=== PATIENT | female | born 1945 | race Caucasian/White ===

== ENCOUNTER 2025-03-12 16:27 | Emergency (ER) | payer MEDICARE, BC, SELFPAY ==
[2025-03-12 16:30] VITALS: BP 189/115; PULSE 104; PULSE 82; RESP 18; TEMP 36.7; O2SAT 95
--- NOTE | 2025-03-12 16:43 | PD.EDADULT ---
ED General RME/HPI General Chief complaint: Abdominal Pain Stated complaint: ABDOMINAL PAIN Time Seen by Provider: 03/12/25 16:40 Arrival date/time: 03/12/25 16:27 CC: Abdominal pain, chronic, patient states she went lopes , when she was in her blood pressure taken when her nurse was not there. Patient is very anxious and hard of hearing. Related Data Home Medications ?Medication ?Instructions ?Recorded ?Confirmed verapamil 180 mg tablet,extended 180 mg PO QDAY 04/16/22 11/23/23 release buprenorphine 20 mcg/hour weekly 20 mcg topical QWEEK 04/13/23 05/06/23 transdermal patch metoclopramide HCl 5 mg tablet 5 mg PO BID 04/13/23 08/15/23 (Reglan) alprazolam 1 mg tablet 1 mg PO BID 05/06/23 08/15/23 oxycodone 20 mg tablet 20 mg PO Q6H 05/06/23 08/15/23 oxycodone 20 mg tablet 20 mg PO Q6HR PRN GIVE FOR 11/23/23 11/23/23 MOD-SEVERE PAIN Previous Rx's ?Medication ?Instructions ?Recorded ondansetron 4 mg disintegrating 4 mg PO Q6HR PRN Nausea Or 06/09/22 tablet Vomiting #0 tabs lidocaine 5 % topical patch 1 patch topical QDAY abdominal 05/07/23 pain #30 ea naloxone 4 mg/actuation nasal spray 4 mg intranasal Q2M PRN opioid 05/07/23 overdose 30 days #2 ea ziprasidone HCl 20 mg capsule 20 mg PO QPM PRN agitation #14 caps 08/15/23 (Geodon) duloxetine 30 mg capsule,delayed 30 mg PO QDAY #30 caps 08/18/23 release sprinkle Allergies Allergy/AdvReac Type Severity Reaction Status Date / Time iodine Allergy Severe Swelling Verified 08/14/23 12:41 Iodinated Contrast Media Allergy Swelling Verified 08/14/23 12:41 (Iodinated Contrast- Oral of and IV Dye) Lip/Tongue/Throat lorazepam AdvReac Severe MEMORY LOSS Verified 08/14/23 12:41 morphine AdvReac Severe HALLUCINATI Verified 08/14/23 12:41 ONS ondansetron AdvReac Intermediate SHAKING, Verified 08/14/23 12:41 I DONT LIKE THE FEELING UNKNOWN ANTIBIOTIC Allergy Unknown Uncoded 08/14/23 12:41 Review of Systems Review of Systems Narrative Review of Systems: GEN: No fever, no chills, no weight loss EYES: No discharge, no visual changes, no pain HEENT: No ear pain, no congestion, no sore throat PULM: No shortness of breath, no cough, no congestion CV: No chest pain, no dyspnea on exertion, no palpitations GI: No nausea, no vomiting, no diarrhea, + pain, no constipation : No frequency, no urgency, no dysuria MUSC/SKEL: No joint pain, no back pain SKIN: No rash PSYCH: No hallucinations, no depression HEME/LYMPH: No easy bleeding or bruising tendencies NEURO: No weakness, no headache Past Medical History Past Medical History NEUROLOGIC: Positive Transient Ischemic Attacks (TIA) and Alzheimer's Disease; Negative Neurological Disorders or Seizures CARDIAC: Positive Cardiac Disorders, Atrial Fibrillation, Edema and Hypertension; Negative Congestive Heart Failure RESPIRATORY: Negative Chronic Obstructive Pulmonary Disease (COPD) or Asthma GASTROINTESTINAL: Positive Gastrointestinal Disorders, Gall Bladder Disease, Crohn's Disease and Hemorrhoids; Negative Hepatitis or Colorectal Cancer GENITOURINARY: Positive Kidney Stones; Negative Genitourinary Disorders or Renal Disease REPRODUCTIVE: Positive Previous Pregnancies; Negative Breast Cancer, Genital Herpes, Gonorrhea or Syphilis MUSCULOSKELETAL: Positive Musculoskeletal Disorders, Arthritis and Fibromyalgia; Negative Bone Cancer ENT: Positive Glaucoma and Deafness ENDOCRINE: Negative Endocrine Disorders, Diabetes Mellitus Type 1 or Diabetes Mellitus Type 2 HEMATOLOGIC: Positive Blood Disorders and Anemia; Negative Sickle Cell Disease PSYCHO/SOCIAL: Positive Depression and Anxiety OTHER HISTORY: Positive Hospitalization, Falls, Blood Transfusions, Chicken Pox, Measles, Mumps, Rubella (Kinyarwanda Measles) and Pertussis; Negative Autoimmune Disease, Blood Transfusion Reaction, Anesthesia Reactions, Organ Transplant, MRSA, VRSA, Vancomycin-Resistant Enterococci, Human Immunodeficiency Virus (HIV), Clostridium Difficile, Cancer, Breast Cancer, Cervical Cancer, Colorectal Cancer, Lung Cancer or Ovarian Cancer Family History FAMILY HISTORY: Positive Family Psychiatric Problems, Family Cancer and Family Surgery; Negative Family Respiratory Disorders, Family Cardiac Disorders, Family Gastrointestinal Problems or Family Anesthesia Reaction Surgical History SURGICAL: Positive Abdominal Surgery and Bowel Surgery; Negative Cardiac Surgery, Endocrine Surgery, Thyroidectomy, Ear Surgery, Nephrectomy, Joint Replacement, Neurologic Surgery, Mastectomy, Lumpectomy, Hysterectomy, Tubal Ligation, Section or Organ Transplant Social History SMOKING STATUS: Current every day smoker SECOND HAND EXPOSURE: No SUBSTANCE USE: does not use ED Exam Narrative Physical exam: [General: Anxious but not in any acute distress Head normocephalic HEENT: Within acceptable limits Neck is supple nontender Chest equal chest rise nontender to palpation Respiratory: Clear to auscultation no wheezes crackles or rubs CV: Rate rhythm is regular no murmurs rubs or clicks Abdomen is distended soft nontender no masses positive bowel sounds all 4 quadrants Back: No CVA tenderness no spinous process tenderness from cervical spine thoracic and lumbar spine Skin: Intact no petechiae rash induration ulceration or crepitus Extremities: Moving all extremity against resistance cap refill less than 2 seconds neurosensory intact Neuro: Awake alert oriented x3 Glascow coma 15 no focal deficits] Course Quality Measures none Orders Category Date Time Status IV [Insert IV] NOW Care 03/12/25 16:20 Active In and Out Catheter X1 Care 03/12/25 17:40 Completed B-Type Natriuretic Peptide Stat Lab 03/12/25 16:50 Completed CBC Stat Lab 03/12/25 16:50 Completed CMP [Comprehensive Metabolic Panel] Stat Lab 03/12/25 16:50 Completed Drug Screen,Urine Stat Lab 03/12/25 17:50 Completed LDH (Lactate Dehydrogenase) Stat Lab 03/12/25 16:50 Completed Magnesium Stat Lab 03/12/25 16:50 Completed Partial Thromboplastin Time Stat Lab 03/12/25 16:50 Completed Prothrombin Time with INR Stat Lab 03/12/25 16:50 Completed Urinalysis Stat Lab 03/12/25 17:50 Completed Vital Signs Vital signs: Vital Signs Temperature 98.0 F 03/12/25 16:30 Pulse Rate 82 03/12/25 16:30 Respiratory Rate 18 03/12/25 16:30 Blood Pressure 189/115 H 03/12/25 16:30 Pulse Oximetry (%) 95 03/12/25 16:30 Oxygen Delivery Method Room Air 03/12/25 16:30 [facility] Patient data External records reviewed:: [facility] previous records and EMS form Clinical information provided by:: patient and EMS Social determinants that could affect healthcare access:: none Patient has the following chronic illnesses:: A-fib chronic abdominal pain fibromyalgia headache hypokalemia seizure disorder sciatica How is presenting disease/condition affected by chronic disease/condition?: uneffected by Evaluation data The following diagnostics were reviewed and interpreted by me:: lab results and radiology exam(s) Lab and/or radiology exams considered but not ordered:: CBC shows no leukocytosis hemoconcentrated with a hemoglobin 16.8 and a crit of 49.0. No thrombocytopenia. Coags within acceptable limits CMP shows glucose 122 no other electrolyte imbalances renal impairment transaminitis or T. bili elevation BNP is negative Troponin is negative Urine is negative for urinary tract infection UDS is positive for opiates and benzos. Interpretation Summary: There is no acute finding requires emergent or immediate intervention. Vital signs are stable patient will be discharged home. Medications Medications considered but not ordered:: None Medication administrations:: None Consultations Consultation(s) initiated? (list below): No Diagnosis Differential Diagnosis ED Complaint MDM: Electrolyte imbalances renal impairment drug-seeking behavior anxiety Most likely diagnosis given after review of the tests above:: Abdominal pain anxiety Admission Indicated Admission indicated?: not indicated Explain why admission is indicated or not indicated:: Stable for discharge Admission Request Was there a request for admission?: No Disposition Plan Disposition Plan: Discharge Discharge Attestation Discharge Attestation: The patient and all family members were given an opportunity to ask questions and understood the discharge instructions. Discharge instructions specifically effects, indications for sooner follow up or return to the emergency department, and the expected course of current diagnosis. Patient condition: Stable Medical Decision Making Differential Diagnosis Differential Diagnosis: Electrolyte imbalances renal impairment drug-seeking behavior anxiety Lab Data 03/12/25 16:50 03/12/25 16:50 Labs: Lab Results 03/12/25 03/12/25 Range/Units 16:50 17:50 WBC 8.2 (3.6-11.0) Thou/mm3 RBC 5.13 (4.00-5.20) Miln/mm3 Hgb 16.8 H (12.0-16.0) g/dL Hct 49.0 H (36.0-46.0) % MCV 96 (80-100) fL MCH 32.7 (25.0-35.0) pg MCHC 34.3 (31.0-37.0) g/dl RDW Std Deviation 43.0 (36.4-46.3) fL Plt Count 177 (140-440) Thou/mm3 Neut % (Auto) 69 (37-80) % Lymph % (Auto) 23 (10-50) % [place] % (Auto) 6 (0-12) % Eos % (Auto) 1 (0-10) % Baso % (Auto) 0 (0-2.5) % Neut # (Auto) 5.7 (1.8-7.7) Thou/mm3 Lymph # (Auto) 1.9 (1.0-4.8) Thou/mm3 [place] # (Auto) 0.5 (0.0-0.8) Thou/mm3 Eos # (Auto) 0.0 (0.0-0.5) Thou/mm3 Baso # (Auto) 0.0 (0.0-0.2) Thou/mm3 Immature Gran # (Auto) 0.03 H (0.00-0.00) Thou/mm3 Absolute Nucleated RBC 0.00 (0.00-0.00) Thou/mm3 Immature Gran % 0 (0-0) % Nucleated RBC % 0 (0) /100 WBC PT 11.6 (9.0-12.2) Seconds INR 1.1 (0.9-1.3) APTT 33.4 (22.0-36.0) Seconds Sodium 139 (136-145) mMol/L Potassium 4.5 (3.4-5.1) mMol/L Chloride 105 (98-107) mMol/L Carbon Dioxide 25.5 (20.0-31.0) mMol/L Anion Gap 9 (7-16) BUN 14 (9-23) mg/dL Creatinine 1.0 (0.6-1.3) mg/dL Estim Creat Clear Calc Not Performed. eGFR 57 L (60 - ) See Note BUN/Creatinine Ratio 14 (12-20) Ratio Glucose 122 H (74-106) mg/dL Calculated Osmolality 279 (275-295) Calcium 9.5 (8.3-10.6) mg/dL Corrected Calcium 9.5 (8.5-10.1) mg/dL Magnesium 2.0 (1.6-2.6) mg/dL Total Bilirubin 0.4 (0.3-1.2) mg/dL AST 20 (0-34) U/L ALT 11 (10-49) U/L Alkaline Phosphatase 103 (46-116) U/L Lactate Dehydrogenase 202 (120-246) U/L B-Natriuretic Peptide 64 (0-100) pg/mL Total Protein 7.9 (5.7-8.2) gm/dL Albumin 4.2 (3.4-4.8) gm/dL Globulin 3.7 H (2.3-3.5) gm/dL Albumin/Globulin Ratio 1.1 L (1.2-2.2) Ur Collection Type Clean Catch Urine Color Lt-Yellow (Lt Yel-Yel) Urine Clarity Clear (Clear/Hazy) Urine pH 6.0 (5.0-7.0) Ur Specific [place] 1.011 (1.001-1.035) Urine Protein Negative (Neg - Trace) Urine Glucose (UA) Negative (Negative) Urine Ketones Negative (Negative) Urine Blood 2+ A (Negative) Urine Nitrite Negative (Negative) Urine Bilirubin Negative (Negative) Urine Urobilinogen (Auto) Negative (0.0-1.0) mg/dL Ur Leukocyte Esterase Negative (Negative) Urine RBC 12 H (0-3) /hpf Urine WBC 1 (0-5) /hpf Ur Squamous Epith Cells < 1 (0-5) /hpf Urine Bacteria None (None) Urine Opiates Screen Positive A (Negative) Urine Fentanyl Screen Negative (Negative) Ur Barbiturates Screen Negative (Negative) U Amphetamin/Meth Scrn Negative (Negative) U Benzodiazepines Scrn Positive A (Negative) U Cocaine Metab Screen Negative (Negative) U Marijuana (THC) Screen Negative (Negative) Discharge Plan Plan Patient Disposition: HOME (Self Care) Patient condition on transfer: Stable Prescriptions/Referrals Prescriptions/Med Rec: No Action ondansetron 4 mg Tablet,Disintegrating 4 mg PO Q6HR PRN (Reason: Nausea Or Vomiting) Qty: 0 0RF verapamil 180 mg tablet extended release 180 mg PO QDAY Patient Comments: TAKE 1 TABLET BY MOUTH TWICE A DAY FOR 90 DAYS Rx Instructions: hold for SBP less than 100, or DBP less than 60 buprenorphine 20 mcg/hour patch weekly 20 mcg TOPICAL QWEEK Patient Comments: APPLY 1 PATCH TO SKIN TRANSDERMAL WEEKLY metoclopramide HCl [Reglan] 5 mg tablet 5 mg PO BID oxycodone 20 mg tablet 20 mg PO Q6H Patient Comments: TAKE 1 TABLET BY MOUTH EVERY 6 HOURS FOR 30 DAYS *04/12 alprazolam 1 mg tablet 1 mg PO BID Patient Comments: TAKE 1 TABLET BY MOUTH TWICE A DAY FOR 30 DAYS naloxone 4 mg/actuation spray,non-aerosol 4 mg intranasal Q2M PRN (Reason: opioid overdose) 30 Days Qty: 2 3RF Rx Instructions: spray 1 dose in 1 nostril; switch nostrils ea dose till help comes lidocaine 5 % adhesive patch,medicated 1 patch topical QDAY Qty: 30 0RF Patient Comments: LIDOCAINE PATCH 4% Rx Instructions: leave on most painful area for up to 12 hrs ziprasidone HCl [Geodon] 20 mg capsule 20 mg PO QPM PRN (Reason: agitation) Qty: 14 0RF Rx Instructions: give with food (meal/snack) duloxetine 30 mg capsule, delayed rel sprinkle 30 mg PO QDAY Qty: 30 2RF oxycodone 20 mg tablet 20 mg PO Q6HR PRN (Reason: GIVE FOR MOD-SEVERE PAIN) Referrals: No Primary/Family,Physician [Primary Care Provider] - In 1 week Problem List Clinical Impression: Abdominal pain Patient/Caregiver Discharge Instructions Education Materials: Abdominal Pain Print Language: Qatari Stand Alone Forms: Georgina Award Info., Work/School Release, Patient Portal Info Letter PA/FRUIT TESTER Supervising Physician PA/FRUIT TESTER Supervising Physician: Efe Domínguez ENP
[2025-03-12 17:10] LABS: Basophils % (Auto) 0 % (0-2.5); Eosinophils % (Auto) 1 % (0-10); Hemoglobin 16.8 g/dL (12.0-16.0); Immature Granulocytes % (Auto) 0 % (0-0); Immature Granulocytes Auto 0.03 Thou/mm3 (0.00-0.00); Lymphocytes # (Auto) 1.9 Thou/mm3 (1.0-4.8); Lymphocytes % (Auto) 23 % (10-50); Mean Corpuscular HGB Conc 34.3 g/dl (31.0-37.0); Mean Corpuscular Hemoglobin 32.7 pg (25.0-35.0); Mean Corpuscular Volume 96 fL (80-100); Monocytes # (Auto) 0.5 Thou/mm3 (0.0-0.8); Monocytes % (Auto) 6 % (0-12); Neutrophils # (Auto) 5.7 Thou/mm3 (1.8-7.7); Neutrophils % (Auto) 69 % (37-80); Nucleated Red Blood Cell % 0 /100 WBC (0); Platelet Count 177 Thou/mm3 (140-440); Red Blood Count 5.13 Miln/mm3 (4.00-5.20); White Blood Count 8.2 Thou/mm3 (3.6-11.0)
[2025-03-12 17:25] LABS: INR 1.1 (0.9-1.3); Partial Thromboplastin Time 33.4 Seconds (22.0-36.0); Prothrombin Time 11.6 Seconds (9.0-12.2)
[2025-03-12 17:29] LABS: Alanine Aminotransferase 11 U/L (10-49); Albumin, Serum 4.2 gm/dL (3.4-4.8); Albumin/Globulin Ratio 1.1 (1.2-2.2); Alkaline Phosphatase 103 U/L (46-116); Anion Gap 9 (7-16); Aspartate Amino Transferase 20 U/L (0-34); BUN/Creatinine Ratio 14 Ratio (12-20); Bilirubin,Total 0.4 mg/dL (0.3-1.2); Blood Urea Nitrogen 14 mg/dL (9-23); Calcium 9.5 mg/dL (8.3-10.6); Calcium (Corrected) 9.5 mg/dL (8.5-10.1); Carbon Dioxide 25.5 mMol/L (20.0-31.0); Chloride 105 mMol/L (98-107); Globulin 3.7 gm/dL (2.3-3.5); Glucose 122 mg/dL (74-106); LDH (Lactate Dehydrogenase) 202 U/L (120-246); Osmolality,Calculated 279 (275-295); Potassium 4.5 mMol/L (3.4-5.1); Sodium 139 mMol/L (136-145); Total Protein 7.9 gm/dL (5.7-8.2); eGFR 57 See Note
[2025-03-12 17:45] LABS: B-Type Natriuretic Peptide 64 pg/mL (0-100)
--- NOTE | 2025-03-12 17:45 | PC.NURSE ---
PT REQUESTING PAIN MEDS. HERBIE PST MANAGER INFORMED. NO NEW ORDERS RECEIVED
[2025-03-12 17:54] LABS: Collection Type, Urine Clean Catch
[2025-03-12 17:57] LABS: Bilirubin,Urine Negative (Negative); Blood,Urine 2+ (Negative); Clarity,Urine Clear (Clear/Hazy); Color,Urine Lt-Yellow (Lt Yel-Yel); Glucose, Urine Negative (Negative); Ketones,Urine Negative (Negative); Leukocyte Esterase,Urine Negative (Negative); Nitrite,Urine Negative (Negative); Protein,Urine Negative (Neg - Trace); RBC,Urine 12 /hpf (0-3); Specific Gravity,Urine 1.011 (1.001-1.035); Squamous Epithelial Cell,Urine < 1 /hpf (0-5); Urobilinogen,Urine Negative mg/dL (0.0-1.0); WBC,Urine 1 /hpf (0-5)
[2025-03-12 18:06] VITALS: BP 156/84; PULSE 70; RESP 16; TEMP 36.8; O2SAT 94
[2025-03-12 18:21] LABS: Amphetamine/Methamp Scrn,U Negative (Negative); Barbiturate Screen,Urine Negative (Negative); Benzodiazepines Screen,Urine Positive (Negative); Benzoylecgonine Screen, Ur Negative (Negative); Fentanyl Screen,Urine Negative (Negative); Opiate Screen,Urine Positive (Negative); THC Screen,Urine Negative (Negative)
--- NOTE | 2025-03-12 20:17 | PC.NURSE ---
report called via telephone to lamonte arizmendi from [facility]
== END 2025-03-12 20:22 | disposition home or self-care (01) ==
PROVIDERS: Registered Nurse General Practice; Emergency Provider Emergency Medicine
DX: R10.9 Unspecified abdominal pain (principal); I48.20 Chronic atrial fibrillation, unspecified; H91.90 Unspecified hearing loss, unspecified ear; M79.7 Fibromyalgia; F17.210 Nicotine dependence, cigarettes, uncomplicated; Z86.73 Personal history of transient ischemic attack (TIA), and cerebral infarction without residual deficits; Z91.041 Radiographic dye allergy status; Z88.5 Allergy status to narcotic agent
CPT/HCPCS: 51701; 36415; 80053; 80307; 81001; 83615; 83735; 83880; 85025; 85610; 85730; 99283

== ENCOUNTER → 2025-05-05 | Outpatient (CLI) | payer MEDICARE, BC, MEDICAID, SELFPAY ==
[2025-05-05 12:43] LABS: Collection Type, Urine Clean Catch; RBC,Urine 0 /hpf (0-3); Squamous Epithelial Cell,Urine 0 /hpf (0-5)
[2025-05-05 13:29] LABS: Bilirubin,Urine Negative (Negative); Blood,Urine Negative (Negative); Clarity,Urine Clear (Clear/Hazy); Color,Urine Lt-Yellow (Lt Yel-Yel); Glucose, Urine Negative (Negative); Ketones,Urine Negative (Negative); Leukocyte Esterase,Urine Negative (Negative); Nitrite,Urine Negative (Negative); Protein,Urine Negative (Neg - Trace); Specific Gravity,Urine 1.008 (1.001-1.035); Urobilinogen,Urine Negative mg/dL (0.0-1.0); WBC,Urine < 1 /hpf (0-5)
== END | disposition home or self-care (01) ==
PROVIDERS: Referring Provider Hospitalist; Visit Provider Hospitalist
DX: N39.0 Urinary tract infection, site not specified (principal)
CPT/HCPCS: 81001; 87086

== ENCOUNTER 2025-11-20 14:51 | Emergency (ER) | payer MEDICARE, BC, MEDICAID, SELFPAY ==
[2025-11-20] VITALS (12 sets, daily range): BP systolic 158–208; BP diastolic 90–140; PULSE 73–100; RESP 15–20; TEMP 36–37; O2SAT 94–96; BMI 26.9
--- NOTE | 2025-11-20 15:12 | EDNOTE_ITS ---
ED General RME/HPI General Chief complaint: Abdominal Pain Stated complaint: ABD PAIN Time Seen by Provider: 11/20/25 15:09 Arrival date/time: 11/20/25 14:51 CC: Abdominal pain HPI patient presents to the ER via EMS who bring her from [facility] where the patient is experience abdominal pain as per request of the son who is visiting her requesting that she be evaluated. Patient is openly moaning on the bed requesting pain meds for abdominal pain. She has a history of Alzheimer's Crohn disease status post colostomy fibromyalgia A-fib hypertension thyroid issues. EMS report stable vital signs and route. Updated information from the charge nurse who received a phone call [facility] the patient was giving high dose pain medications as well as antianxiety medications prior to arrival but was not willing to wait for the medications to kick in. And this occurred while the son was visiting hence the call for 911 to have her evaluated here in the emergency room. Reassessment of the patient at 1600, the patient is sleeping soundly in the room however the minute that she is awoken she immediately complains about abdominal pain and when she is getting a pill . Related Data Home Medications ?Medication ?Instructions ?Recorded ?Confirmed verapamil 180 mg tablet,extended 180 mg PO QDAY 11/23/23 release buprenorphine 20 mcg/hour weekly 20 mcg topical QWEEK 04/13/23 05/06/23 transdermal patch metoclopramide HCl 5 mg tablet 5 mg PO BID 04/13/23 (Reglan) alprazolam 1 mg tablet 1 mg PO BID 05/06/23 3 oxycodone 20 mg tablet 20 mg PO Q6H 05/06/23 oxycodone 20 mg tablet 20 mg PO Q6HR PRN GIVE FOR 1 01/24/23 11/23/23 MOD-SEVERE PAIN Previous Rx's ?Medication ?Instructions ?Recorded ondansetron 4 mg disintegrating 4 mg PO Q6HR PRN Nause a Or 06/09/22 tablet Vomiting #0 tabs lidocaine 5 % topical patch 1 patch topical QDAY abdom inal 05/07/23 pain #30 ea naloxone 4 mg/actuation nasal spray 4 mg intranasal Q2 M PRN opioid 06/08/23 overdose 30 days #2 ea ziprasidone HCl 20 mg capsule 20 mg PO QPM PRN agitati on #14 caps 08/15/23 (Geodon) duloxetine 30 mg capsule,delayed 30 mg PO QDAY #30 cap s 08/18/23 release sprinkle mesalamine 1,000 mg rectal 1 g WI DAILY #14 ea 5 suppository Allergies Allergy/AdvReac Type Severity Reaction Status Date / Time iodine Allergy Severe Swelling Verified 08/14/23 12:41 Iodinated Contrast Media Allergy Swelling Verified 08/14/23 12:41 (Iodinated Contrast- Oral of and IV Dye) Lip/Tongue/Throat lorazepam AdvReac Severe MEMORY LOSS Verified 08/14/23 12:41 morphine AdvReac Severe HALLUCINATI Verified 08/14/23 12:41 ONS ondansetron AdvReac Intermediate SHAKING, Verified 08/14/23 12:41 I DONT LIKE THE FEELING UNKNOWN ANTIBIOTIC Allergy Unknown Uncoded 08/14/23 12:41 Review of Systems Review of Systems Narrative Review of Systems: GEN: No fever, no chills, no weight loss EYES: No discharge, no visual changes, no pain HEENT: No ear pain, no congestion, no sore throat PULM: No shortness of breath, no cough, no congestion CV: No chest pain, no dyspnea on exertion, no palpitations GI: No nausea, no vomiting, no diarrhea, + pain, no constipation : No frequency, no urgency, no dysuria MUSC/SKEL: No joint pain, no back pain SKIN: No rash PSYCH: No hallucinations, no depression HEME/LYMPH: No easy bleeding or bruising tendencies NEURO: No weakness, no headache ED Exam Narrative Physical exam: [General: Appears in moderate discomfort but not in any acute distress patient continues to ask repeatedly for pain medications. Even when sound asleep and woken up. Head normocephalic HEENT: Eyes pupils are PERRLA EOMs are intact mouth pink dry membranes uvula is midline swallow symmetrical phonation is normal. All other substance of HEENT within acceptable limits Neck is supple nontender no JVD. Chest equal chest rise nontender to palpation Respiratory: Clear to auscultation no wheezes crackles or rubs CV: Rate rhythm is regular no murmurs rubs or clicks Abdomen is soft diffuse tenderness throughout no reflexive guarding no rebound tenderness. Colostomy bag has green/brown stool with a pink stoma. No leaking. No erythema or edema of the skin in the surrounding attachment areas. Back: No CVA tenderness no spinous process tenderness from cervical spine thoracic and lumbar spine Skin: Intact no petechiae rash induration ulceration or crepitus Extremities: Moving all extremity against resistance cap refill less than 2 seconds neurosensory intact Neuro: Awake alert oriented x1, self, Glascow coma 15 no focal deficits] Course Course Course Narrative: I suspect part of the patient's pain now is proctitis as she has rectal pain. Inflammation. Patient has stool in her colostomy bag. I have low index suspicion of an SBO. Urine is negative, this time the patient be discharged home with chronic abdominal pain and proctitis Quality Measures none Orders Category Date Time Status EKG (ED ONLY) *Do not use* NOW Care 11/20/25 15:15 Completed Saline [Insert IV] NOW Care 11/20/25 15:[address] abdomen pelvis wo con Stat Exams 11/20/25 15:15 Completed EKG (ED Only) Stat Exams 11/20/25 15:15 Draft B-Type Natriuretic Peptide Stat Lab 11/20/25 16:27 Completed CBC Stat Lab 11/20/25 16:27 Completed Comprehensive Metabolic Panel Stat Lab 11/20/25 16:27 Completed Drug Screen,Urine Stat Lab 11/20/25 19:26 Completed Lipase Stat Lab 11/20/25 16:27 Completed Magnesium Stat Lab 11/20/25 16:27 Completed Partial Thromboplastin Time Stat Lab 11/20/25 16:27 Completed Prothrombin Time with INR Stat Lab 11/20/25 16:27 Completed Urinalysis, C/S if Indicated Stat Lab 11/20/25 19:26 Completed ALPRazoLAM [Xanax] Med 11/20/25 22:18 Discontinued 1 mg PO X1 ONE Apixaban [Eliquis] Med 11/20/25 22:18 Discontinued 5 mg PO X1 ONE Labetalol Tab [Trandate Tab] Med 11/20/25 22:58 Discontinued 100 mg PO X1 ONE Sodium Chloride 0.9% 1000 ml [Ns] 1,000 ml Med 11/20/25 18:36 Discontinued IV 999 mls/hr Verapamil [Calan] Med 11/20/25 22:16 Discontinued 80 mg PO X1 ONE cloNIDine HCL [Catapres] Med 11/20/25 22:16 Discontinued 0.2 mg PO X1 ONE hydrALAZINE HCL [Apresoline] Med 11/20/25 21:18 Discontinued 25 mg PO X1 ONE oxyCODONE IR Med 11/20/25 15:17 Discontinued 5 mg PO NOW ONE oxyCODONE IR Med 11/20/25 21:17 Discontinued 5 mg PO Q6HR PRN Vital Signs Vital signs: Vital Signs Temperature 97.5 F 11/20/25 14:52 Pulse Rate 98 11/20/25 14:52 Respiratory Rate 19 11/20/25 14:52 Blood Pressure 169/90 H 11/20/25 14:52 Pulse Oximetry (%) 96 11/20/25 14:52 Oxygen Delivery Method Room Air 11/20/25 14:52 Discharge Plan Plan Patient Disposition: HOME (Self Care) Patient condition on transfer: Stable Prescriptions/Referrals Prescriptions/Med Rec: New mesalamine 1,000 mg suppository 1 g WI DAILY Qty: 14 0RF No Action ondansetron 4 mg Tablet,Disintegrating 4 mg PO Q6HR PRN (Reason: Nausea Or Vomiting) Qty: 0 0RF verapamil 180 mg tablet extended release 180 mg PO QDAY Patient Comments: TAKE 1 TABLET BY MOUTH TWICE A DAY FOR 90 DAYS Rx Instructions: hold for SBP less than 100, or DBP less than 60 buprenorphine 20 mcg/hour patch weekly 20 mcg TOPICAL QWEEK Patient Comments: APPLY 1 PATCH TO SKIN TRANSDERMAL WEEKLY metoclopramide HCl [Reglan] 5 mg tablet 5 mg PO BID oxycodone 20 mg tablet 20 mg PO Q6H Patient Comments: TAKE 1 TABLET BY MOUTH EVERY 6 HOURS FOR 30 DAYS *04/12 alprazolam 1 mg tablet 1 mg PO BID Patient Comments: TAKE 1 TABLET BY MOUTH TWICE A DAY FOR 30 DAYS naloxone 4 mg/actuation spray,non-aerosol 4 mg intranasal Q2M PRN (Reason: opioid overdose) 30 Days Qty: 2 3RF Rx Instructions: spray 1 dose in 1 nostril; switch nostrils ea dose till help comes lidocaine 5 % adhesive patch,medicated 1 patch topical QDAY Qty: 30 0RF Patient Comments: LIDOCAINE PATCH 4% Rx Instructions: leave on most painful area for up to 12 hrs ziprasidone HCl [Geodon] 20 mg capsule 20 mg PO QPM PRN (Reason: agitation) Qty: 14 0RF Rx Instructions: give with food (meal/snack) duloxetine 30 mg capsule, delayed rel sprinkle 30 mg PO QDAY Qty: 30 2RF oxycodone 20 mg tablet 20 mg PO Q6HR PRN (Reason: GIVE FOR MOD-SEVERE PAIN) Referrals: Stefan Ware MD [Primary Care Provider, [facility]] - In 1 week Problem List Clinical Impression: Aneurysm artery, renal, Chronic abdominal pain, Proctitis Patient/Caregiver Discharge Instructions Education Materials: Abdominal Pain, Anatomy of the Digestive System, ED Chronic Pain Additional Instructions: Give the suppositories once a day to help with the proctitis continue on the pain medications. Print Language: Maori Stand Alone Forms: TURN8 Award Info., Patient Portal Info Letter PA/OKSANA Supervising Physician PA/OKSANA Supervising Physician: Efe Domínguez ENP [facility] Clinical Information Provided by: patient and EMS Medical Records reviewed [facility] and EMS Medical Records additional comments: Last admission was in October 2023 for sepsis and pneumonia. Past medical history includes Alzheimer's Crohn disease status post colostomy fibromyalgia A- fib hypertension hypothyroidism Meds/Rx considered, not ordered None Labs/Rad/Tests considered, not ordered None Chronic Illness/Social Conditions Explain: Dementia fibromyalgia chronic abdominal pain EKG Interpretation EKG #1: EKG Interpretation: EKG performed at 1552 shows a ventricular rate of 73 WI interval 177 QRS of 8 9 QTc of 431 this is sinus rhythm. Labs Labs: interpreted by tx Lab(s) Interpretation(s): CBC shows no acute leukocytosis and H&H of 16.6 and 48.7 respectively no thrombocytopenia Coags within acceptable limits CMP shows a chloride of 108 no other electrolyte imbalances renal impairment transaminitis or T. bili elevation BNP at 39 Lipase at 34. Urine is negative Imaging Imaging interpretation: interpreted by tx Imaging Interpretation(s): CT of the abdomen shows hepatocellular disease 6 mm right renal artery aneurysm mild fluid in the small bowel loops mild right perianal inflammatory changes without abscess. Medication Administration(s) Medication Administration History Discontinued Medications Alprazolam (Alprazolam 0.25 Mg Tablet) 1 mg PO X1 ONE Stop: 11/20/25 22:19 Last Admin: 11/20/25 22:49 Dose: 1 mg Documented By: KRYSTYNA Apixaban (Apixaban 2.5 Mg Tablet) 5 mg PO X1 ONE Stop: 11/20/25 22:19 Last Admin: 11/20/25 22:50 Dose: 5 mg Documented By: KRYSTYNA Clonidine (Clonidine Hcl 0.1 Mg Tablet) 0.2 mg PO X1 ONE Stop: 11/20/25 22:17 Last Admin: 11/20/25 22:50 Dose: 0.2 mg Documented By: KRYSTYNA Hydralazine HCl (Hydralazine Hcl 25 Mg Tablet) 25 mg PO X1 ONE Stop: 11/20/25 21:19 Last Admin: 11/20/25 21:25 Dose: 25 mg Documented By: KRYSTYNA Sodium Chloride (Ns) 1,000 mls @ 999 mls/hr IV .Q1H1M ONE Stop: 11/20/25 19:36 Last Infusion: 11/20/25 20:27 Dose: Infused Documented By: Admin: 11/20/25 18:45 Dose: 999 mls/hr Documented By: ALMA Labetalol HCl (Labetalol 100 Mg Tablet) 100 mg PO X1 ONE Stop: 11/20/25 22:59 Last Admin: 11/20/25 23:13 Dose: 100 mg Documented By: KRYSTYNA Oxycodone HCl (Oxycodone Hcl 5 Mg Ir Tab) 5 mg PO NOW ONE Stop: 11/20/25 15:18 Last Admin: 11/20/25 15:41 Dose: Not Given Documented By: BRANDON Non-Admin Reason: Discontinued Oxycodone HCl (Oxycodone Hcl 5 Mg Ir Tab) 5 mg PO Q6HR PRN PRN Reason: PAIN SCALE 4-10(Mod-Sev Stop: 11/25/25 21:16 Last Admin: 11/20/25 21:22 Dose: 5 mg Documented By: KRYSTYNA Verapamil HCl (Verapamil 40 Mg Tablet) 80 mg PO X1 ONE Stop: 11/20/25 22:17 Last Admin: 11/20/25 23:09 Dose: Not Given Documented By: KRYSTYNA Non-Admin Reason: Cancelled by Provider Diagnosis Differential Diagnosis ED Complaint MDM: Ileus obstruction chronic abdominal pain
--- NOTE | 2025-11-20 15:15 | XR_ITS ---
Examination: CT abdomen and pelvis without contrast. Coronal 3-D reconstructions. Sagittal 2-D reconstructions. Date and time of exam: November 20, 2025, 1629 hours, comparison May 06, 2023 INDICATIONS: Generalized abdominal pain onset today CTDI: vol (mGy): 7.25 DLP: (mGycm): 410 Technique: Axial images of the abdomen have been obtained, 3 mm slice thickness Intravenous contrast material has not been administered. Low dose protocols were performed. One or more of the following dose reduction techniques were used; automated exposure control, adjustment of the mA and/or KV according to patient size, use of iterative reconstruction technique. 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
--- NOTE | 2025-11-20 15:15 | EKG_ITS ---
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
--- NOTE | 2025-11-20 15:44 | PC.NURSE ---
NURSE FROM [facility] CALLED STATED THAT PT HAS CHRONIC ABD PAIN AND IS ON THE CLOCK WITH MULTIPLE PAIN MEDS FOR CONTROL. FAMILY CAME TO VISIT PT, PT WAS GIVEN HER OXYCODONE PRESCRIBED BUT REFUSED TO WAIT FOR PAIN MED TO TAKE AFFECT. FAMILY REQUESTING FOR PT TO GO TO ED FOR FURTHER PAIN CONTROL. MD MIR
[2025-11-20 17:00] LABS: Basophils # (Auto) 0.0 Thou/mm3 (0.0-0.2); Basophils % (Auto) 0 % (0-2.5); Eosinophils # (Auto) 0.0 Thou/mm3 (0.0-0.5); Eosinophils % (Auto) 0 % (0-10); Hematocrit 48.7 % (36.0-46.0); Hemoglobin 16.6 g/dL (12.0-16.0); Immature Granulocytes Auto 0.05 Thou/mm3 (0.00-0.00); Lymphocytes # (Auto) 2.3 Thou/mm3 (1.0-4.8); Lymphocytes % (Auto) 23 % (10-50); Mean Corpuscular HGB Conc 34.1 g/dl (31.0-37.0); Mean Corpuscular Hemoglobin 31.9 pg (25.0-35.0); Mean Corpuscular Volume 94 fL (80-100); Monocytes # (Auto) 0.9 Thou/mm3 (0.0-0.8); Monocytes % (Auto) 9 % (0-12); Neutrophils # (Auto) 6.7 Thou/mm3 (1.8-7.7); Neutrophils % (Auto) 67 % (37-80); Nucleated Red Blood Cell # 0.00 Thou/mm3 (0.00-0.00); Nucleated Red Blood Cell % 0 /100 WBC (0); Platelet Count 178 Thou/mm3 (140-440); RDW Standard Deviation 43.8 fL (36.4-46.3); Red Blood Count 5.20 Miln/mm3 (4.00-5.20); White Blood Count 9.9 Thou/mm3 (3.6-11.0)
[2025-11-20 17:12] LABS: INR 1.1 (0.9-1.3); Partial Thromboplastin Time 33.2 Seconds (22.0-36.0); Prothrombin Time 11.2 Seconds (9.0-12.2)
[2025-11-20 17:17] LABS: Alanine Aminotransferase 12 U/L (10-49); Albumin, Serum 4.3 gm/dL (3.4-4.8); Albumin/Globulin Ratio 1.2 (1.2-2.2); Alkaline Phosphatase 104 U/L (46-116); Anion Gap 9 (7-16); Aspartate Amino Transferase 19 U/L (0-34); BUN/Creatinine Ratio 12 Ratio (12-20); Bilirubin,Total 0.4 mg/dL (0.3-1.2); Blood Urea Nitrogen 11 mg/dL (9-23); Calcium 9.5 mg/dL (8.3-10.6); Calcium (Corrected) 9.5 mg/dL (8.5-10.1); Carbon Dioxide 26.0 mMol/L (20.0-31.0); Chloride 108 mMol/L (98-107); Creatinine (Component) 0.9 mg/dL (0.6-1.3); Estimated Creatinine Clearance 49.2 mL/min (>60); Globulin 3.7 gm/dL (2.3-3.5); Glucose 94 mg/dL (74-106); Lipase 34 U/L (12-53); Magnesium 2.2 mg/dL (1.6-2.6); Osmolality,Calculated 284 (275-295); Potassium 4.2 mMol/L (3.4-5.1); Sodium 143 mMol/L (136-145); Total Protein 8.0 gm/dL (5.7-8.2); eGFR > 60 See Note
[2025-11-20 17:22] LABS: B-Type Natriuretic Peptide 39 pg/mL (0-100)
[2025-11-20] MEDS: SODIUM CHLORIDE 0.9% 1000 ML 1,000 ML 999 ML IV (18:45)
[2025-11-20 19:34] LABS: Collection Type, Urine Clean Catch
[2025-11-20 19:43] LABS: Bacteria,Urine Rare; Bilirubin,Urine Negative (Negative); Blood,Urine 1+ (Negative); Clarity,Urine Clear (Clear/Hazy); Color,Urine Lt-Yellow (Lt Yel-Yel); Culture Indicated,Urine Not Indicated; Glucose, Urine Negative (Negative); Hyaline Casts,Urine < 1 /hpf (0-1); Ketones,Urine Negative (Negative); Leukocyte Esterase,Urine Negative (Negative); Nitrite,Urine Negative (Negative); PH,Urine 6.5 (5.0-7.0); Protein,Urine Negative (Neg - Trace); RBC,Urine 2 /hpf (0-3); Specific Gravity,Urine 1.008 (1.001-1.035); Squamous Epithelial Cell,Urine 2 /hpf (0-5); Urobilinogen,Urine Negative mg/dL (0.0-1.0); WBC,Urine 4 /hpf (0-5)
[2025-11-20 19:55] LABS: Amphetamine/Methamp Scrn,U Negative (Negative); Barbiturate Screen,Urine Negative (Negative); Benzodiazepines Screen,Urine Positive (Negative); Benzoylecgonine Screen, Ur Negative (Negative); Fentanyl Screen,Urine Negative (Negative); Opiate Screen,Urine Negative (Negative); THC Screen,Urine Negative (Negative)
--- NOTE | 2025-11-20 21:01 | PC.NURSE ---
pt requesting pain meds, provider angela made aware, prvider states that pt received her pain meds already. no new orders at this time, pt not in distress, pt stable.
[2025-11-20] MEDS: oxyCODONE HCL 5 MG IR TAB PO (21:22)
[2025-11-20] MEDS: APIXABAN 2.5 MG TABLET 5 MG PO (22:50)
--- NOTE | 2025-11-20 23:09 | PC.NURSE ---
provider angela made aware of verapamil not being available, new order for labetolol put in for pt.
[2025-11-20] MEDS: LABETALOL 100 MG TABLET PO (23:13)
== END 2025-11-21 00:11 | disposition home or self-care (01) ==
PROVIDERS: Registered Nurse General Practice; Emergency Provider Family Medicine; PCP Family Medicine
DX: K62.89 Other specified diseases of anus and rectum (principal); I72.2 Aneurysm of renal artery; G30.9 Alzheimer's disease, unspecified; F02.80 Dementia in other diseases classified elsewhere, unspecified severity, without behavioral disturbance, psychotic disturbance, mood disturbance, and anxiety; K50.90 Crohn's disease, unspecified, without complications; M79.7 Fibromyalgia; Z93.3 Colostomy status; I48.91 Unspecified atrial fibrillation; I10 Essential (primary) hypertension
CPT/HCPCS: 36415; 74176; 80053; 80307; 81001; 83690; 83735; 83880; 85025; 85610; 85730; 93005; 96360; 96361; 99284; J7030; A9270